=== PATIENT | female | born 1985 | race Caucasian/White ===

== ENCOUNTER 2017-09-14 04:20 | Emergency (ER) | payer MEDICAID ==
[~2017-09-14] VITALS: Ht 162.6 cm; Wt 50.0 kg
[2017-09-14 04:28] VITALS: BP 143/80; PULSE 92; RESP 16; TEMP 97.8; O2SAT 100
[2017-09-14] MEDS ORDERED: ONDANSETRON HCL 4 MG/2 ML VIAL IV ONE (05:15)
[2017-09-14] MEDS ORDERED: SODIUM CHLOR 0.9% 1000 ML INJ 1,000 ML IV ONE (05:15)
[2017-09-14 05:35] LABS: BACTERIA, URINE OCC /hpf; BILIRUBIN, URINE NEG (NEG); BLOOD, URINE LARGE (NEG); CALCIUM OXALATE CRYSTALS,URINE RARE /hpf; GLUCOSE,URINE NEG (NEG); KETONE, URINE NEG (NEG); MUCUS URINE FEW /lpf (OCC); NITRITE,URINE NEG (NEG); SQUAMOUS EPITHELIAL CELL URINE 13 /hpf (0-5); URINE COLOR YELLOW (YELLW/STRAW); URINE LEUKOCYTE ESTERASE LARGE (NEG)
[2017-09-14 05:38] LABS: AUTOMATED NEUTROPHIL # 4.9 TH/MM3 (1.8-7.7); BASOPHIL # 0.1 TH/MM3 (0-0.2); BASOPHIL % 0.8 % (0.0-2.0); EOSINOPHIL # 0.4 TH/MM3 (0-0.4); EOSINOPHIL % 4.5 % (0.0-4.0); HEMATOCRIT 38.2 % (35.0-46.0); LYMPH % 27.8 % (9.0-44.0); LYMPHOCYTE # 2.4 TH/MM3 (1.0-4.8); MEAN CORPUSCULAR HEMOGLOBIN 29.3 PG (27.0-34.0); MEAN CORPUSCULAR HGB CONC 34.1 % (32.0-36.0); MEAN PLATELET VOLUME 9.1 FL (7.0-11.0); MONO % 9.6 % (0.0-8.0); MONOCYTE # 0.8 TH/MM3 (0-0.9); NEUT % 57.3 % (16.0-70.0); PLATELET COUNT 371 TH/MM3 (150-450); RED BLOOD COUNT 4.44 MIL/MM3 (4.00-5.30); RED CELL DISTRIBUTION WIDTH 15.1 % (11.6-17.2); WHITE BLOOD COUNT 8.5 TH/MM3 (4.0-11.0)
[2017-09-14 05:39] LABS: PROTHROMBIN TIME - PATIENT 10.2 SEC (9.8-11.6)
[2017-09-14 06:03] LABS: ALKALINE PHOSPHATASE 51 U/L (45-117); TOTAL BILIRUBIN ADULT 0.4 MG/DL (0.2-1.0); TOTAL PROTEIN 8.1 GM/DL (6.4-8.2)
--- NOTE | 2017-09-14 06:07 | PD ---
HPI Chief Complaint: Abdominal Pain Time Seen by Provider: 04:41 Travel History International Travel<30 days: No Contact w/Intl Traveler<30days: No Traveled to known affect area: No History of Present Illness HPI The patient is a 32 year old female who presents to the [facility] emergency department with a history of reportedly vomiting blood 1 prior to arrival. She reports that approximately an hour and a half ago she was walking up the stairs at a local hotel while she had laundry in her hands and tripped and fell onto her left side. Patient reports that she then began to have abdominal pain, nausea, and then vomited blood 1. She reports having left lateral hip pain. She reports that she has been able to walk since the accident. The patient denies ever having a GI bleed previously. She does however have a history of Crohn's disease reportedly currently in remission. She recently moved to the area and has not established with a primary care physician or senior director finance. She reports that she has been diagnosed with hepatitis C, however she has not undergone treatment. She reports that she is also recently been diagnosed with lupus. She reports that she takes Naprosyn every 2-3 days for headaches or joint pain. She reports that she occasionally uses cocaine and last used cocaine 1-2 days ago on review of systems otherwise, the patient denies having any known recent fevers, cough or congestion, neck pain, head injury, or loss of consciousness, chest pain, shortness of breath, diarrhea, urinary symptoms, or neurologic symptoms. She reports that she last moved her bowels earlier today. She denies having any blood in her stool or black or tarry stools. The patient's last menstrual cycle is reportedly August 28, 2017. [facility] Past Medical History Narrative Medical The patient's past medical history is significant for Crohn's disease, lupus, hepatitis C. Diminished Hearing: No Medical other: Yes (chrons disease and lupus) Tetanus Vaccination: < 5 Years Influenza Vaccination: No ?: Not LMP: 08/28/2017 Tubal Ligation: Yes Past Surgical History Narrative Surgical The patient's past surgical history is significant for a right hand reconstruction. Social History Alcohol Use: Yes (occasionally) Tobacco Use: Yes (vap) Substance Use: Yes (cocaine occasionally) Allergies-Medications (Allergen,Severity, Reaction): Coded Allergies: haloperidol (Verified Allergy, Severe, 09/14/17) uncontrollable vomiting tramadol (Verified Allergy, Severe, 09/14/17) uncontrollable vomiting Reported Meds & Prescriptions Reported Meds & Active Scripts Active No Active Prescriptions or Reported Medications Review of Systems Except as stated in HPI: all other systems reviewed are Neg General / Constitutional: No: Fever Eyes: No: Visual changes HENT: No: Headaches, Neck Stiffness, Neck Pain Cardiovascular: No: Chest Pain or Discomfort Respiratory: No: Cough, Shortness of Breath Gastrointestinal: Positive: Nausea, Vomiting, Abdominal Pain, Hematemesis, No: Diarrhea, Hematochezia, Changes in Bowel Habits, Indigestion, Loss of Appetite Genitourinary: No: Dysuria Musculoskeletal: Positive: Myalgias, Pain Skin: No Rash Neurologic: No: Weakness, Focal Abnormalities, Change in Mentation, Slurred Speech, Sensory Disturbance Psychiatric: No: Depression Endocrine: No: Polydipsia Hematologic/Lymphatic: No: Easy Bruising Physical Exam Narrative General: The patient is a well-developed well-nourished female in no acute distress. Head is normocephalic atraumatic. Eyes: EOMI, pupils are equal round and reactive to light. Nose: Midline septum with pink mucous membranes Mouth: Dentition unremarkable. Moist mucus membranes. Posterior oropharynx is not erythematous. No tonsillar hypertrophy. Uvula midline. Airway patent. Neck: No palpable lymphadenopathy. No nuchal rigidity. No thyromegaly. Cardiovascular: Regular rate and rhythm without murmurs, gallops, or rubs. No pulse deficit to the extremities on simultaneous auscultation and palpation of her radial artery. Lungs: Clear to auscultation bilaterally. No wheezes, rhonchi, or rales. Abdomen: Soft, without tenderness to palpation in all 4 quadrants of the abdomen. No guarding, rebound, or rigidity. Normal bowel sounds are audible. No tenderness on palpation of McBurney's point. Negative Monroy sign. Extremities: No clubbing, cyanosis, or edema. 2+ pulses in all 4 extremities. Back: No spinous process tenderness to palpation. No step-off or crepitus. No erythema or ecchymosis. The patient had left-sided CVA tenderness reported on palpation. Neurologic Exam: Cranial nerves 2-12 were intact on exam. Strength is 5/5 in all 4 extremities. No sensory deficits noted. Skin Exam: No rash noted. Intact skin that is warm and dry. RECTAL EXAM: No masses or tenderness, stool is brown. The patient's stool is Hemoccult negative Data Data Last Documented VS Vital Signs Date Time Temp Pulse Resp B/P (MAP) Pulse Ox O2 Delivery O2 Flow Rate FiO2 09/14/17 04:28 97.8 92 16 143/80 (101) 100 Orders Orders Complete Blood Count With Diff (09/14/17 05:01) Comprehensive Metabolic Panel (09/14/17 05:01) Prothrombin Time / Inr (Pt) (09/14/17 05:01) Act Partial Throm Time (Ptt) (09/14/17 05:01) C-Reactive Protein (Crp) (09/14/17 05:01) Lipase (09/14/17 05:01) Urinalysis - C+S If Indicated (09/14/17 05:01) Chest, Single Ap (09/14/17 05:01) Ct Abd/Pel W Iv Contrast(Rout) (09/14/17 05:01) Iv Access Insert/Monitor (09/14/17 05:01) Ecg Monitoring (09/14/17 05:01) Oximetry (09/14/17 05:01) Type And Screen (09/14/17 05:01) Ed Urine Pregnancytest Poc (09/14/17 05:01) Sodium Chlor 0.9% 1000 Ml Inj (Ns 1000 M (09/14/17 05:15) Ondansetron Inj (Zofran Inj) (09/14/17 05:15) Urine Culture (09/14/17 05:15) Ceftriaxone Inj (Rocephin Inj) (09/14/17 06:30) Acetaminophen (Tylenol) (09/14/17 06:30) Labs Laboratory Tests Test 09/14/17 05:10 09/14/17 05:15 09/14/17 06:55 White Blood Count 8.5 TH/MM3 Red Blood Count 4.44 MIL/MM3 Hemoglobin 13.0 GM/DL Hematocrit 38.2 % Mean Corpuscular Volume 86.0 FL Mean Corpuscular Hemoglobin 29.3 PG Mean Corpuscular Hemoglobin Concent 34.1 % Red Cell Distribution Width 15.1 % Platelet Count 371 TH/MM3 Mean Platelet Volume 9.1 FL Neutrophils (%) (Auto) 57.3 % Lymphocytes (%) (Auto) 27.8 % Monocytes (%) (Auto) 9.6 % Eosinophils (%) (Auto) 4.5 % Basophils (%) (Auto) 0.8 % Neutrophils # (Auto) 4.9 TH/MM3 Lymphocytes # (Auto) 2.4 TH/MM3 Monocytes # (Auto) 0.8 TH/MM3 Eosinophils # (Auto) 0.4 TH/MM3 Basophils # (Auto) 0.1 TH/MM3 CBC Comment DIFF FINAL Differential Comment Prothrombin Time 10.2 SEC Prothromb Time International Ratio 1.0 RATIO Activated Partial Thromboplast Time 22.3 SEC Urine Color YELLOW Urine Turbidity HAZY Urine pH 6.0 Urine Specific [place] 1.024 Urine Protein TRACE mg/dL Urine Glucose (UA) NEG mg/dL Urine Ketones NEG mg/dL Urine Occult Blood LARGE Urine Nitrite NEG Urine Bilirubin NEG Urine Urobilinogen 2.0 MG/DL Urine Leukocyte Esterase LARGE Urine RBC 44 /hpf Urine WBC 10 /hpf Urine Squamous Epithelial Cells 13 /hpf Urine Calcium Oxalate Crystals RARE /hpf Urine Bacteria OCC /hpf Urine Mucus FEW /lpf Microscopic Urinalysis Comment CULTURE INDICATED Total Protein 8.1 GM/DL Alkaline Phosphatase 51 U/L Total Bilirubin 0.4 MG/DL [facility] Medical Decision Making Medical Screen Exam Complete: Yes Emergency Medical Condition: Yes Medical Record Reviewed: Yes Interpretation(s) Last Impressions Chest X-Ray 09/14/17 0501 Signed Impressions: Service Date/Time: Thursday, September 14, 2017 05:22 - CONCLUSION: No acute disease. Bhupinder Moreland MD Differential Diagnosis Peptic ulcer bleed, versus bleeding related to intra-abdominal trauma, versus variceal bleed Narrative Course During the course of the patient's emergency department visit, the patient's history, examination, and differential diagnosis were reviewed with the patient. The patient was placed on a cardiac sonographer with oximetry and frequent blood pressure monitoring. The patient had IV access obtained and blood work sent for analysis. The patient was initially provided normal saline 1 L IV fluid bolus. The patient was given Zofran 4 mg IV. The patient was given Tylenol for pain. The patient's laboratory studies were reviewed and remarkable for a white count of 8.5, hemoglobin 13, platelets 371 with 9.6 monocytes, PT 10.2, PTT 22.3. Urinalysis shows large occult blood large leukocyte esterase 44 RBCs, 10 WBCs, rare calcium oxalate crystals, occasional bacteria. A bedside test was negative. Radiology studies were reviewed and remarkable for a chest x-ray that shows no acute cardiopulmonary disease. The patient's chemistry was pending at 7 AM, however the patient requested to leave. The patient is pending completion of her chemistry panel, lipase, and CT scan of the abdomen and pelvis. AMA: The risks of leaving against medical advice without further evaluation treatment were discussed with the patient. These risks include hemorrhagic shock with possible stroke or . The patient indicated understanding of these risks and appeared to have the capacity to make this decision. The patient is oriented to person, place, time, and situation. [facility] Point of Care Internal Pos. & Neg. Controls: Passed Fecal Specimen Occult Blood: Negative Diagnosis Primary Impression: Fall Qualified Codes: W19.XXXA - Unspecified fall, initial encounter Additional Impressions: Hematemesis Qualified Codes: K92.0 - Hematemesis Abdominal pain Qualified Codes: R10.12 - Left upper quadrant pain Referrals: [facility] 1 day Patient Instructions: Acute Abdominal Pain (ED), General Instructions, Hematemesis (ED) Scripts No Active Prescriptions or Reported Meds Disposition: 07 AGAINST MEDICAL ADVICE Condition: Stable Demetria Mullins MD Sep 14, 2017 06:07
--- NOTE | 2017-09-14 06:10 | RADRPT ---
EXAM DATE/TIME: 09/14/2017 05:22 [facility] COMPARISON: No previous studies available for comparison. INDICATIONS : Left lateral chest and left abdominal flank pain from trauma sustained in a fall. MEDICAL HISTORY : None. SURGICAL HISTORY : None. ENCOUNTER: Initial ACUITY: 1 day PAIN SCORE: 8/10 LOCATION: Left lateral chest and abdomen FINDINGS: A single view of the chest demonstrates the lungs to be symmetrically aerated without evidence of mas s, infiltrate or effusion. The cardiomediastinal contours are unremarkable. Osseous structures are intact. CONCLUSION: No acute disease. Bhupinder Moreland MD on September 14, 2017 at 6:08 Board Certified Radiologist. This report was verified electronically.
[2017-09-14] MEDS ORDERED: ACETAMINOPHEN 325 MG TAB PO ONE (06:30)
[2017-09-14] MEDS ORDERED: cefTRIAXone INJ 1,000 MG in SODIUM CHLORIDE 0.9% INJ 100 ML IV ONE (06:30)
[2017-09-14 07:57] LABS: ALBUMIN 3.4 GM/DL (3.4-5.0); ALT (GPT) 63 U/L (10-53); AST (GOT) 51 U/L (15-37); BICARBONATE 25.7 MEQ/L (21.0-32.0); BLOOD UREA NITROGEN 18 MG/DL (7-18); C-REACTIVE PROTEIN 0.61 MG/DL (0.00-0.30); CALCIUM 8.4 MG/DL (8.5-10.1); CHLORIDE 110 MEQ/L (98-107); CREATININE 0.52 MG/DL (0.50-1.00); GLOMERULAR FILTRATION RATE 137 ML/MIN (>89); GLUCOSE,RANDOM 88 MG/DL (74-106); SODIUM (NA) 141 MEQ/L (136-145)
== END 2017-09-14 07:28 | disposition left against medical advice (07) ==
LOC: NEPC 04:20
DX: K92.0 Hematemesis (principal); R10.12 Left upper quadrant pain; W10.9XXA Fall (on) (from) unspecified stairs and steps, initial encounter; B96.20 Unspecified Escherichia coli [E. coli] as the cause of diseases classified elsewhere; K50.90 Crohn's disease, unspecified, without complications; B19.20 Unspecified viral hepatitis C without hepatic coma; M32.9 Systemic lupus erythematosus, unspecified; Z72.0 Tobacco use; Z53.20 Procedure and treatment not carried out because of patient's decision for unspecified reasons
CPT/HCPCS: 71045; 80053; 81001; 83690; 84703; 85025; 85610; 85730; 86140; 87077; 87086; 87186; 96374; 96375; 99284; J0696; J2405; J7030